=== PATIENT | male | born 2000 | race African-American/Black ===

== ENCOUNTER 2021-01-06 14:49 | Emergency (ER) | payer SELFPAY ==
[2021-01-06 15:31] LABS: Bacteria/HPF None Seen HPF (None Seen); Bilirubin 1+ (Negative); Blood, Urine Negative (Negative); Clarity Clear (Clear); Glucose, Urine (Dipstick) Normal (Negative); Ketone, Urine Negative (Negative); Leukocyte 250 Leu/uL (Negative); Nitrite Negative (Negative); Protein, Urine (Dipstick) 20 mg/dL (Neg-Trace); Specific Gravity, Urine 1.035 (1.002-1.036); Squamous Epithelial None Seen HPF (0-3); WBC/HPF Greater than 50 HPF (0-3); pH, Urine 6.5 (5.0-9.0)
[2021-01-06 15:33] LABS: RBC/HPF 0-3 HPF (0-3)
[2021-01-06] MEDS ORDERED: cefTRIAXone\\ROCEPHIN 500 MG VIAL ONE (15:39)
[2021-01-06] MEDS ORDERED: Lidocaine 1% PF 5 ML VIAL ONE (15:39)
[2021-01-08 16:12] LABS: Chlam.trachomatis by PCR,Urine Not Detected (NotDetected)
== END 2021-01-06 16:03 | disposition home or self-care (01) ==
LOC: ERS 14:49
DX: N34.1 Nonspecific urethritis (principal)
CPT/HCPCS: 81003; 81015; 87491; 87591; 96372; 99283; J0696

== ENCOUNTER 2023-03-27 12:46 | Emergency (ER) | payer SELFPAY | END 2023-03-27 13:46 | disposition home or self-care (01) | LOC: ERS 12:46 | DX: H10.32 Unspecified acute conjunctivitis, left eye (principal); F17.290 Nicotine dependence, other tobacco product, uncomplicated | CPT/HCPCS: 99283 ==